=== PATIENT | male | born 2000 ===

== ENCOUNTER 2024-07-05 05:20 | Day surgery (SDC) | payer OTHER ==
[2024-06-28 10:57] VITALS: BP 85/53
[~2024-07-05] VITALS: Ht 172.7 cm; Wt 68.9 kg
[~2024-07-05 05:20] MED LIST: ZYRTEC10 M3 PO
[2024-07-05] MEDS ORDERED: HEMOSTATIC MATRIX 1 KIT KIT TOP ONE (07:02)
[2024-07-05] MEDS ORDERED: BUPIVACAINE HCL/MPF 0.5% 30ML VIAL ONE (07:02)
[2024-07-05] MEDS ORDERED: DIBUCAINE 30 GM TUBE ONE (07:02)
[2024-07-05] MEDS ORDERED: POVIDONE-IODINE 118 ML BOTT TOP ONE (07:02)
[2024-07-05] MEDS ORDERED: CEFTRIAXONE SODIUM 2,000 MG VIAL ONE (07:03)
[2024-07-05] MEDS ORDERED: LIDOCAINE HCL 1%/EPINEPHRINE 20ML VIAL IJ ONE (07:03)
[2024-07-05] MEDS ORDERED: METRONIDAZOLE/SODIUM CHLORIDE 500 MG/100 ML PIGGYBACK IV ONE (07:03)
[2024-07-05] MEDS ORDERED: CELECOXIB200 MG PO (09:03)
[2024-07-05] MEDS ORDERED: NEURONTIN300 MG PO (09:03)
[2024-07-05] MEDS ORDERED: TRAMADOL HCL50 MG PO (09:04)
== END 2024-07-05 12:40 | disposition home or self-care (01) ==
LOC: CIR.AMB 05:20
PROVIDERS: ATTEND Surgery
DX: K62.82 Dysplasia of anus (principal); A63.0 Anogenital (venereal) warts